=== PATIENT | female | born 2000 | race Caucasian/White ===

== ENCOUNTER 2024-08-15 15:23 | Outpatient (CLI) | payer OTHER, SELFPAY | END 2024-08-15 15:24 | disposition home or self-care (01) | PROVIDERS: PCP Family Medicine; Visit Provider Family Medicine | DX: E10.65 Type 1 diabetes mellitus with hyperglycemia (principal); Z11.1 Encounter for screening for respiratory tuberculosis | CPT/HCPCS: 80053; 86480 ==

== ENCOUNTER 2025-06-06 12:22 | Outpatient (CLI) | payer SELFPAY ==
[2025-06-06 23:25] LABS: Chlamydia DNA Amplified* NOT DETECTED (No Detected); GC DNA Amplified* NOT DETECTED (No Detected)
== END 2025-06-06 12:23 | disposition home or self-care (01) ==
PROVIDERS: PCP Family Medicine; Visit Provider Family Medicine
DX: Z00.00 Encounter for general adult medical examination without abnormal findings (principal); R87.619 Unspecified abnormal cytological findings in specimens from cervix uteri; E10.9 Type 1 diabetes mellitus without complications; Z11.3 Encounter for screening for infections with a predominantly sexual mode of transmission; Z11.4 Encounter for screening for human immunodeficiency virus [HIV]; Z12.4 Encounter for screening for malignant neoplasm of cervix
CPT/HCPCS: 80053; 80061; 82043; 82570; 86592; 86703; 87491; 87591; 87624; 87625; 88141; 88142